=== PATIENT | male | born 1965 | race Caucasian/White ===

== ENCOUNTER 2016-05-23 11:38 | Day surgery (SDC) | payer OTHER ==
[2016-05-23] MEDS ORDERED: BUPIVACAINE 0.5% 30 ML SDV ONE (11:40)
[2016-05-23] MEDS ORDERED: LR 1,000 ML IV ONE (12:23)
[2016-05-23] MEDS ORDERED: LIDOCAINE 1% 5 ML SDV ID PRN (12:23)
[2016-05-23] MEDS ORDERED: ONDANSETRON 4 MG/2 ML VIAL ONE (13:03)
[2016-05-23] MEDS ORDERED: DEXAMETHASONE 4 MG/ML VIAL ONE (13:03)
[2016-05-23] MEDS ORDERED: LIDOCAINE 2% 100 MG/5 ML SYR ONE (13:03)
[2016-05-23] MEDS ORDERED: PROPOFOL 200 MG/20 ML VIAL ONE (13:04)
[2016-05-23] MEDS ORDERED: fentaNYL 100 MCG/2 ML INJ ONE ×2 (13:04→15:00)
[2016-05-23] MEDS ORDERED: MIDAZOLAM 2 MG/2 ML VIAL ONE (13:09)
[2016-05-23] MEDS ORDERED: ceFAZolin 1 GM VIAL ONE ×2 (13:15→14:12)
--- NOTE | 2016-05-23 15:52 | GOP ---
[f rep st] OPERATIVE REPORT DATE OF OPERATION: 05/23/2016 SURGEON: Amadou Ruiz MD PREOPERATIVE DIAGNOSIS: Left wrist triangular cartilage and scapholunate ligament injury. POSTOPERATIVE DIAGNOSIS: Left wrist triangular cartilage and scapholunate ligament injury. PROCEDURE PERFORMED: Left wrist arthroscopy, triangular cartilage hemiresection with ligamentodesis of the ligamentum subcruentum, and dorsal capsular debridement and tightening, and then scapholunat e thermal ligamentodesis. FINDINGS: INDICATIONS: This patient had widening of the scapholunate interval, evidence of inflammation of th e radioscapholunate ligament and dorsal capsular redundancy, and evidence of the triangula r cartilage tear from the ulnar margin of the ulna with marked inflammatory reaction. The scapholun ate ligament was significantly stretched but there was no area of rupture and there was good backflo w from injection of Marcaine at the beginning of surgery, indicating that the radiocarpal joint was, in fact, a sealed chamber. For that reason, it was possible to do the ligamentodesis arthroscopica lly instead of open. DESCRIPTION OF PROCEDURE: Under general anesthesia, the patient's left arm was prepped and draped i n the usual fashion and through a 3-4 portal, the radiocarpal joint was carefully examined, and the articular surfaces of all bones appeared to be in good condition. The scapholunate ligament had red undancy, but no areas of rupture. There was significant redundancy and injury to the dorsal capsule with fronds of inflammatory synovium. There also was a tear of the ulnar attachment of the triangu lar cartilage in the area of the fovea and ulnar styloid and probing of that cartilage edge revealed instability. 6U portal was made and through that portal the small joint shaver was used to remove all inflammator y synovium in the area and a basket forceps used to remove that part of the articular disc which was torn away and unstable. The Mitek VAPR probe was used to tighten the underlying ligamentum subcrue ntum, which appeared to be stretched. Then, looking across the dorsal aspect of the wrist with the arthroscope in the 6U portal the redundancy of the dorsal capsule was debrided with the small joint shaver. All inflammatory synovium was removed with the small joint shaver and then Mitek VAPR probe was used to smooth down and tighten the dorsal capsule. Then, also through that 3-4 portal the Mitek VAPR probe was used for spot welding the scapholunate ligament and this all the way from the mid dorsal aspect right down to the palmar aspect. There was palmar capsule from scap holunate ulnarly, which was redundant, and that was treated also with Mitek VAPR probe through the 6 U portal. Once all pathology was corrected, the wound was infiltrated with 0.5% plain Marcaine. It should be noted that the irrigation solution was kept cool throughout the course of the operative p rocedure, even during heat treatments. The surgical portals were closed with horizontal mattress sutures of 5-0 Prolene and then a bulky so ft pressure dressing was applied followed by palmar based fiberglass splint held in place with an Ac e bandage. Tourniquet deflation resulted in immediate pinking of the digits. He was brought to the recovery area where detailed postoperative instructions were given prior to di schardanial. A prescription for Percocet and Keflex was provided. He had been given 2 g of Ancef prior to commencement of surgery. Followup arrangements in the office for 7-10 days postop for dressing and suture removal and cast application for 3 additional weeks. /[id number]/MODL
== END 2016-05-23 17:05 | disposition home or self-care (01) ==
LOC: FSGY 11:38
PROVIDERS: ATTEND Specialist
PROC: 0RBP4ZZ Excision of Left Wrist Joint, Percutaneous Endoscopic Approach (ICD-10-PCS; principal; 2016-05-23 13:00)
DX: S63.512A Sprain of carpal joint of left wrist, initial encounter (principal); X58.XXXA Exposure to other specified factors, initial encounter; M17.10 Unilateral primary osteoarthritis, unspecified knee; M70.60 Trochanteric bursitis, unspecified hip; M54.16 Radiculopathy, lumbar region; K21.9 Gastro-esophageal reflux disease without esophagitis; I10 Essential (primary) hypertension
CPT/HCPCS: J0690; J1100; J2001; J2250; J2405; J2704; J3010

== ENCOUNTER 2016-07-09 11:13 | Observation (INO) | payer OTHER ==
[2016-07-09] MEDS ORDERED: BUPIVACAINE/EPI 0.25% 30 ML SDV ONE (11:21)
[2016-07-09] MEDS ORDERED: LIDO/EPI 1% **Not for Epidural 20 ML MDV ONE (11:22)
[2016-07-09] MEDS ORDERED: LIDOCAINE 1% 2 ML INJ ONE (12:41)
[2016-07-09] MEDS ORDERED: PROPOFOL/EMULSION 500 MG/50 ML BOTTLE IV ONE ×2 (12:42)
[2016-07-09] MEDS ORDERED: MIDAZOLAM 2 MG/2 ML VIAL ONE ×2 (12:42→12:53)
[2016-07-09] MEDS ORDERED: fentaNYL 250 MCG/5 ML INJ ONE (12:42)
[2016-07-09] MEDS ORDERED: DEXAMETHASONE 4 MG/ML VIAL ONE ×3 (12:43→14:01)
[2016-07-09] MEDS ORDERED: GLYCOPYRROLATE 0.2 MG/1 ML VIAL ONE (12:43)
[2016-07-09] MEDS ORDERED: ONDANSETRON 4 MG/2 ML VIAL ONE ×2 (12:43)
[2016-07-09] MEDS ORDERED: LR 1,000 ML IV ONE (13:04)
[2016-07-09] MEDS ORDERED: LIDOCAINE 1% 5 ML SDV ID PRN (13:04)
[2016-07-09] MEDS ORDERED: ROCURONIUM 100 MG/10 ML VIAL ONE ×2 (14:12)
[2016-07-09] MEDS ORDERED: PROPOFOL 200 MG/20 ML VIAL ONE ×2 (14:32→14:33)
[2016-07-09] MEDS ORDERED: fentaNYL 100 MCG/2 ML INJ ONE ×2 (14:32→14:42)
[2016-07-09] MEDS ORDERED: HYDROmorphONE/DILAUDID 2 MG/ML INJ ONE (16:16)
[2016-07-09] MEDS ORDERED: ONDANSETRON 4 MG/2 ML VIAL IVP PRN (16:28)
--- NOTE | 2016-07-09 16:28 | POSTOPPROG ---
Post Op Note Date of Operation: 07/09/16 Surgeon: Jacek Tobin Anesthesiologist: Van Anesthesia: GET(General Endotracheal) Pre-op Diagnosis: LAVELL, nasal obstruction Post-op Diagnosis: LAVELL, nasal obstruction Indication: LAVELL, nasal obstruction Procedure: UPPP, BOT reduction, septoplasty, turbinate reduction Findings: Lingual tonsil hypertrophy, septal deviation, turbunate hypert Inf/Abcess present in the surg proc area at time of surgery?: No Depth: Organ Space EBL: Minimal Complications: NONE
[2016-07-09] MEDS ORDERED: LABETALOL HCL 50 MG/10 ML SYR ONE (17:00)
[2016-07-09] MEDS ORDERED: DIAZEPAM 10 MG/2 ML SYR ONE (17:00)
[2016-07-09] MEDS ORDERED: HYDROmorphONE/DILAUDID 1 MG/ML SYR ONE (17:36)
[2016-07-09] MEDS ORDERED: hydrALAZINE 20 MG/ML VIAL ONE (17:53)
[2016-07-09] MEDS ORDERED: hydrALAZINE 20 MG/ML VIAL IVP ONE (18:30)
[2016-07-09] MEDS: HYDROCOD/APAP 7.5/325 IN 15ML UDCUP PO PRN (18:58)
[2016-07-09] MEDS: D5W 1/2 NS 1,000 ML IV SCH (19:07)
[2016-07-09] MEDS ORDERED: TAPENTADOL HCL 50 MG TAB PO ONE (20:00)
[2016-07-09] MEDS ORDERED: PREGABALIN 150 MG CAP PO ONE (20:00)
[2016-07-09] MEDS ORDERED: HYDROmorphONE/DILAUDID 6 MG/30 ML PCA IV ONE (21:02)
[2016-07-09] MEDS ORDERED: NALOXONE HCL 0.4 MG/ML INJ IVP PRN (21:22)
[2016-07-09] MEDS ORDERED: HYDROmorphONE/DILAUDID 6 MG/30 ML PCA IV PRN (21:22)
[2016-07-09] MEDS: DIAZEPAM 10 MG/2 ML SYR IVP PRN (23:01)
[2016-07-09] MEDS: HEPARIN 5,000 UNIT/0.5 ML SYR SC SCH (23:01)
--- NOTE | 2016-07-09 23:17 | PDHOSCONS ---
Hospitalist Consult Hospitalist Consult: Consulting service: ENT, Dr. Boyd Reason for Consult: pain control Patient is a 50 year old male with severe osteoarthritis, regional pain syndrome , fibromyalgia, obstructive and central sleep apnea, hypertension who was admitted to [facility] today for an elective ENT procedure (uvulopalatopharyngoplasty, base of tongue reduction, septoplasty, turbinate reduction). This procedure occurred today without complication and the patient was returned to the med/ surg floor for continued post-operative observation. The hospitalist service is being consulted for pain control in the acute post-op setting as well as for management of his chronic pain syndromes. On my evaluation of the patient, he was markedly uncomfortable, complaining of significant pain in his throat, as well as diffuse musculoskeletal pain and anxiety. The pain was not control with prn IV morphine, so a Dilaudid ELECTRICAL DESIGN TECHNICIAN was initiated with moderately improved control. The main issue at my evaluation was muscular spasming pain and oral pain when attempting to swallow. Longitudinal PMH: Past Medical History: Hypertension Complex Regional Pain syndrome Fibromyalgia Chronic Hypertension severe osteoarthritis central and obstructive sleep apnea Past Surgical History: > 20 bilateral orthopedic knee surgeries Lumbar fusion surgeries x 5 L hip replacement multiple wrist orthopedic surgeries inguinal hernia repair breast reduction surgery bilaterally Social History: Denies history of tobacco, alcohol or drug use. 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 Allergies: Meloxicam, vancomycin Family History: Mother: thyroid disease Physical Exam: VS BP 157/96, HR 93, O2 sat 94% on oxymask Gen: obese M, anxious, NAD HEENT: bilateral nasal packing, with mild surrounding post-op edema CV: RRR, no murmurs Resp: CTA bilaterally; in no respiratory distress Abd: soft, nontender, nondistended Ext: no edema; peripheral pulses equal Neuro: AO x 3, no focal deficits MSK: diffuse tenderness, but no obvious trauma, effusions, skin breakdown Labs/Imaging: none Impression/Plan: The patient is a 50 year old male with chronic hypertension, chronic pain syndrome (due to fibromyalgia, regional pain syndrome, severe osteoarthritis) and LAVELL for which he underwent an ENT procedure today and is now in acute on chronic pain due to being unable to take his home pain med regimen as well acute post-op pain. Dilaudid ELECTRICAL DESIGN TECHNICIAN has been initiated, with slowly improving symptoms. 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 Once acute post-op pain is better managed and patient is able to tolerate PO intake, restart home pain regimen and transition off ELECTRICAL DESIGN TECHNICIAN pump. - topical lidoderm patches for OA/musculoskeletal pain - valium 5-10 mg IVP q6h prn for muscle spasm - Hurricaine spray for oral anesthesia - check BMP, if renal function normal, can also initiate toradol 30 mg IVP q6h # chronic hypertension BP is slightly elevated on my assessment, but this is likely due to acute pain. Control pain and restart home BP med once able to tolerate PO. Can also give hydralazine 10 mg IVP q8h prn for markedly elevated BP. # obstructive sleep apnea Patient usually wears nocturnal O2 via nasal cannula and has significant claustrophobia with current face tent. Once nasal packing is removed, resume supplemental O2 via nasal cannula. In the interim, increase humidification provided via face tent. Thank you for this consult and the Hospitalist service will continue to follow. Sury Lora DO
[2016-07-09] MEDS: BENZOCAINE UNIT DOSE SPRAY HURRICAINE MM PRN (23:24)
[2016-07-09] MEDS ORDERED: LIDOCAINE 5% 1 EA PATCH TD SCH (23:30)
[2016-07-10] MEDS: DIAZEPAM 10 MG/2 ML SYR IVP PRN (01:28)
[2016-07-10] MEDS: PREGABALIN 150 MG CAP PO PRN ×2 (03:23→09:16)
[2016-07-10] MEDS: OXYMETAZOLINE 30 ML NASAL SPRAY EACHNARE PRN ×2 (03:34→03:37)
[2016-07-10] MEDS: D5W 1/2 NS 1,000 ML IV SCH (04:59)
[2016-07-10] MEDS: HEPARIN 5,000 UNIT/0.5 ML SYR SC SCH (05:03)
[2016-07-10] MEDS: BENZOCAINE UNIT DOSE SPRAY HURRICAINE MM PRN ×2 (05:14→11:45)
[2016-07-10 05:31] LABS: ANION GAP 11 mEq/L (8-16); CALCIUM 8.5 mg/dL (8.5-10.4); CARBON DIOXIDE 23 mEq/l (22-31); CHLORIDE 101 mEq/L (97-110); CREATININE 0.8 mg/dL (0.7-1.3); GLOMERULAR FILTRATION RATE > 60; GLUCOSE 136 mg/dL (70-100); POTASSIUM 4.5 mEq/L (3.5-5.2); SODIUM 135 mEq/L (134-144)
[2016-07-10] MEDS ORDERED: DEXAMETHASONE 10 MG/ML VIAL IV ONE (06:00)
[2016-07-10] MEDS ORDERED: KETOROLAC 30 MG/1 ML SDV IVP PRN (06:46)
[2016-07-10] MEDS ORDERED: TERBINAFINE 30 GM CRTUBE TP PRN ×2 (06:59→07:48)
[2016-07-10] MEDS ORDERED: PRAMOXINE RC PRN ×2 (06:59→08:40)
[2016-07-10] MEDS ORDERED: HYDROCORTISONE RC PRN ×2 (06:59→08:40)
[2016-07-10] MEDS ORDERED: LIDOCAINE 4% 15 GM CREAM TP PRN (06:59)
[2016-07-10] MEDS ORDERED: SENNOSIDES 1 TAB PO PRN ×2 (06:59→07:48)
[2016-07-10] MEDS ORDERED: TESTOSTERONE TD PRN (06:59)
[2016-07-10] MEDS ORDERED: NON-FORMULARY NEW DRUG (Ropinirole Hcl [Requip 0.5mg] 0.5 MG) PO PRN (06:59)
[2016-07-10] MEDS ORDERED: DICLOFENAC SODIUM 50 MG TAB PO PRN (06:59)
[2016-07-10] MEDS ORDERED: DOCUSATE SODIUM 100 MG CAP PO PRN (06:59)
[2016-07-10] MEDS ORDERED: ACYCLOVIR 5% TP PRN ×2 (06:59→07:46)
[2016-07-10] MEDS ORDERED: TADALAFIL 10 MG PO PRN ×2 (06:59→07:50)
[2016-07-10 07:41] VITALS: PULSE 76
[2016-07-10] MEDS ORDERED: TAPENTADOL HCL 50 MG TAB PO PRN (08:33)
[2016-07-10] MEDS ORDERED: ATORVASTATIN CALCIUM 20 MG TAB PO SCH (09:00)
[2016-07-10] MEDS ORDERED: BUDESONIDE/FORMOTEROL 80/4.5 60 PUFFS/MDI IH SCH (09:00)
[2016-07-10] MEDS ORDERED: NON-FORMULARY NEW DRUG (Ranitidine Hcl [Ranitidine Hcl] 150 MG) PO SCH (09:00)
[2016-07-10] MEDS ORDERED: FAMOTIDINE 20 MG TAB PO SCH (09:00)
[2016-07-10] MEDS ORDERED: CYANO/VITAMIN B12 1000 MCG TAB PO SCH (09:00)
[2016-07-10] MEDS ORDERED: CHLORPHENIRAMINE MALEATE 4 MG TAB PO SCH (09:00)
[2016-07-10] MEDS ORDERED: LOSARTAN POTASSIUM 25 MG TAB PO SCH (09:00)
[2016-07-10] MEDS ORDERED: LIDOCAINE 5% 1 EA PATCH TD SCH (09:00)
[2016-07-10] MEDS ORDERED: ONDANSETRON DISINTEGRATING 4 MG TAB PO PRN (10:55)
[2016-07-10 11:22] VITALS: BP 150/76; RESP 8; O2SAT 93
[2016-07-10 11:24] VITALS: TEMP 97.8
[2016-07-10] MEDS: HYDROCOD/APAP 7.5/325 IN 15ML UDCUP PO PRN (11:53)
[2016-07-10] MEDS ORDERED: MELATONIN 3 MG TAB PO SCH (21:00)
[2016-07-10] MEDS ORDERED: PATCH REMOVAL 1 EA PATCH TD SCH (21:00)
--- NOTE | 2016-07-21 13:34 | GOP ---
[f rep st] OPERATIVE REPORT DATE OF OPERATION: 07/09/2016 SURGEON: Jacek Tobin MD ANESTHESIA: General. PREOPERATIVE DIAGNOSIS: Obstructive sleep apnea, nasal obstruction. POSTOPERATIVE DIAGNOSIS: Obstructive sleep apnea, nasal obstruction. PROCEDURE PERFORMED: Septoplasty, bilateral inferior turbinate reduction, uvulopalatopharyngoplasty , base of tongue Coblation. FINDINGS: SPECIMENS: Right and left tonsils. ESTIMATED BLOOD LOSS: 20 mL. INDICATIONS: Patient was seen in outpatient clinic and found to have a history of recalcitrant obst ructive sleep apnea as well as significant nasal obstruction due to septal deviation and inferior tu rbinate hypertrophy. Given his history and findings, he was determined to be an appropriate nga te for the above-stated procedures. The risks, benefits, and alternatives were explained at length to the patient who stated he understood and wished to go forward with the procedure. DESCRIPTION OF PROCEDURE: Patient was brought to the operating room by Anesthesiology and placed on the operating table. Once the appropriate level of anesthesia was achieved, the soft palate was in jected with 1% lidocaine with 1:100,000 epinephrine. The bilateral nasal columella, nasal septum, a nd inferior turbinates were also injected with 1% lidocaine with 1:100,000 epinephrine. A total of 10 mL was used. The patient was then prepped and draped for the oral portion of the procedure. The table was turned 90 degrees, and a shoulder roll was placed. A McIvor mouth gag was placed atrauma tically in the oral cavity and used to retract the tongue. This was suspended on a Mcneil stand. The right tonsil was excised first using Bovie electrocautery technique. There was minimal bleeding wi th this, and hemostasis was achieved with Bovie electrocautery alone. The left tonsil was then exci sed using Bovie electrocautery technique. There was minimal bleeding with this, and hemostasis was achieved using Bovie electrocautery alone. Relaxing incisions were made on bilateral aspects of the uvula within the tissue of the soft palate. Bovie electrocautery was used for this. The uvula was then draped forward over the soft palate and traced out for the uvuloplasty. The soft palate mucos a within uvuloplasty site and the anterior mucosa off the uvula were resected using Bovie electrocau lynette. 3-0 Vicryl sutures were then used to complete the uvuloplasty. A deep suture was used to estela ng the uvula anteriorly. The tip was then sutured in place into the soft palate site using a figure -of-eight suture. Interrupted sutures were then used at bilateral aspects of the uvula. Two were u sed on each side. The anterior and posterior tonsillar pillars were then approximated using 2 more interrupted sutures on each side. There was minimal bleeding following this,. The tonsillar beds a nd soft palate were injected with 0.25% bupivacaine with epinephrine. The mouth gag was then replac ed with a McIvor mouth gag with a shorter tongue retractor. This was placed in the posterior fashio n, and a silk suture was placed through the tongue. This was used to retract the tongue, and the Mc Roberto Carlos mouth gag was able to be placed deeply. It was then suspended from a Mcneil stand. Using a 70 d egree rigid video endoscope, the base of tongue, vallecula, and epiglottis were well visualized. Co blation technique was used to ablate significant lymphoid tissue from the vallecula and base of tong ue. There was minimal bleeding with this, and hemostasis was achieved using Coblation cautery alone . The tongue suture was then removed. The tonsillar beds were reinspected for bleeding. None was found. The McIvor mouth gag was then removed. The patient was then redraped for the nasal portion of the procedure. A left-sided hemitransfixion incision was created with the needle-tip Bovie elect rocautery. This was elevated with a combination of Selden suction and caudal elevator. Dissection c ontinued in a sub mucoperichondrial and submucoperiosteal plane posteriorly. Once completely elevat ed, a Eladio elevator was used to create a vertical incision at the bony cartilaginous junction. Th e contralateral mucosa was elevated off the bony septum. The deviated portion of quadrangular carti donita was then incised using a D knife. Care was taken to leave 1 cm of dorsal and caudal septal str ut. The incised portion of quadrangular cartilage was then elevated off the contralateral mucosa an d removed using a Sarika. A straight Mcneil scissor was then used to cut the superior portion of t he bony septum. The deviated portion of the bony septum was then removed with Sarika. Once the flaps were laid back in place, the septum appeared straight. Two 4-0 interrupted chromic sutures we re used to close the hemitransfixion incision. A 2 mm microdebrider was used to then complete the s ubmucosal resection and turbinate reductions. The debris was placed in anterior puncture sites on t he head of the inferior turbinates. This was first completed at the right with submucosal dissectio n being completed, and soft tissue reduction well visualized with a 0 degree endoscope. This was re peated at the left with good soft tissue reduction there as well. The right inferior turbinate was then infractured followed by outfracture with the Selden elevator. There was good lateralization of the turbinates with this. This was repeated at the left with good lateralization of the inferior tu rbinates. Bacitracin coated Booth splints were placed in bilateral nasal cavities and secured in pl kuldeep with a 3-0 Prolene suture. The patient tolerated these procedures well and was extubated in the operating room prior to being transferred in good condition to the postanesthesia care unit. COMPLICATIONS: None. /[id number]/MODL
--- NOTE | 2016-07-21 13:39 | GDS ---
[f rep st] DISCHARGE SUMMARY HOSPITAL COURSE: Patient was admitted for airway consideration and pain control following sleep tank cooper ea surgery and septoplasty with inferior turbinate reduction. He had an unremarkable postoperative course but for some difficulties with pain. HOME HEALTH AID was started on the evening of postoperative day 0. By the morning of postoperative day 1, this was able to be discontinued, and pain was reasonably co ntrolled on oral pain medications. He was able to resume activities of daily living and had appropr iate urine output and p.o. intake. Given this, he was determined appropriate for discharge home. May watson was discharged home with antibiotics and pain medicines. He received instructions and was also to follow up 1 week postsurgery at my office. /[id number]/MODL
== END 2016-07-10 14:16 | disposition home or self-care (01) ==
LOC: F3E 11:13
PROVIDERS: ADMIT Otolaryngology; ATTEND Otolaryngology
DX: J34.2 Deviated nasal septum (principal); J34.3 Hypertrophy of nasal turbinates; J35.1 Hypertrophy of tonsils; J34.89 Other specified disorders of nose and nasal sinuses; G47.33 Obstructive sleep apnea (adult) (pediatric); I10 Essential (primary) hypertension; G89.4 Chronic pain syndrome
CPT/HCPCS: 30140; 30520; 41530; 42145; 88304; J0360; J1100; J1170; J2250; J2405; J2704; J3010

== ENCOUNTER → 2017-08-14 | Outpatient (CLI) | payer OTHER ==
[~2017-08-14] MED LIST: IOPAMIDOL (ISOVUE-M 300) 15 ML VIAL ONE; LIDO/EPI 1% **Not for Epidural 20 ML MDV ONE
[2017-08-14 09:34] LABS: INR 0.93 (0.83-1.16); PROTIME(PATIENT) 12.7 SEC (12.0-15.0)
== END ==
LOC: CIMAGING 08:51
PROVIDERS: ATTEND Physical Medicine & Rehabilitation
PROC: B01BYZZ Fluoroscopy of Spinal Cord using Other Contrast (ICD-10-PCS; principal; 2017-08-14)
DX: M48.061 Spinal stenosis, lumbar region without neurogenic claudication (principal); M47.896 Other spondylosis, lumbar region; M43.17 Spondylolisthesis, lumbosacral region; M43.16 Spondylolisthesis, lumbar region
CPT/HCPCS: 72131; 72192; 72265; Q9967